=== PATIENT | female | born 1990 | race Caucasian/White ===

== ENCOUNTER 2024-03-30 19:23 | Emergency (ER) | payer SELFPAY ==
[2024-03-30 19:26] VITALS: BP 145/97; PULSE 92; RESP 20; TEMP 37.1; O2SAT 99; BMI 26.6
[2024-03-30 19:30] VITALS: BP 145/97; PULSE 95; O2SAT 100
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
[2024-03-30 20:00] VITALS: PULSE 84; O2SAT 98
[2024-03-30] MEDS: DEXAMETHASONE 4MG/ML 5ML MDV 10 MG IV (20:03)
[2024-03-30] MEDS: ACETAMINOPHEN 1,000MG/100ML VIAL 1000 MG IV (20:03)
[2024-03-30] MEDS: OXYCODONE 5MG IMMEDIATE RELEASE TABLET 5 MG PO (20:03)
[2024-03-30] MEDS: LACTATED RINGERS 1000ML 1,000 ML 999 ML IV (20:03)
[2024-03-30 20:04] LABS: Basophils # 0.1 K/mm3 (0-0.2); Basophils % 0.6 % (0.1-2.0); Eosinophils # 0.3 K/mm3 (0.0-0.4); Hematocrit 39.6 % (37.0-47.0); Lymphocytes # 2.7 K/mm3 (0.7-4.5); Lymphocytes % 25.3 % (10-50); Mean Corpuscular HGB Conc 32.8 g/dL (31.8-35.4); Mean Corpuscular Hemoglobin 33.1 pg (27.0-31.2); Mean Corpuscular Volume 100.8 fl (81-99); Mean Platelet Volume 7.4 fl (7.4-10.4); Monocytes # 0.5 K/mm3 (0.1-1.0); Monocytes % 5.1 % (1.7-9.3); Platelet Count 424 K/mm3 (142-424); Red Blood Count 3.93 M/mm3 (4.20-5.40); Red Cell Distribution Width 14.8 % (11.5-17.5); White Blood Count 10.7 K/mm3 (4.8-10.8)
[2024-03-30 20:07] LABS: Chloride 108 mmol/L (98-107); HCG Qualitative, Serum Negative (Negative)
[2024-03-30 20:08] LABS: Potassium 3.3 mmoL/L (3.5-5.1); Sodium 138 mmol/L (136-145)
[2024-03-30 20:10] LABS: Alanine Aminotransferase 100 U/L (12-78); Alkaline Phosphatase 86 U/L (38-126); Aspartate Amino Transferase 175 U/L (14-36); Bilirubin,Total 0.7 mg/dl (0.2-1.3); Blood Urea Nitrogen 11 mg/dl (7-17); Creatine Kinase 1251 U/L (30-135); Creatinine Clearance Estimated 130 mL/min (50-200); Estimated Glomerular Filt Rate 96 ml/min (>60); GFR (African American) 116 ML/MIN (>60); INR 0.95 (0.9-1.1); Prothrombin Time 10.3 seconds (10.1-12.5)
[2024-03-30 20:11] LABS: Albumin Level 4.4 g/dl (3.5-5.0); Albumin/Globulin Ratio 1.5 (1.1-1.8); Calcium 9.7 mg/dl (8.4-10.2); Globulin 2.9 g/dL (1.3-3.2); Glucose 101 mg/dl (74-100); Lipase 103 U/L (23-300); Magnesium 1.7 mg/dl (1.6-2.3); Total Protein,Serum 7.3 g/dl (6.3-8.2)
[2024-03-30 20:22] LABS: Troponin I 0.02 ng/ml (0.00-0.034)
[2024-03-30 21:45] VITALS: BP 147/96; PULSE 71; O2SAT 98
[2024-03-30 21:50] LABS: Anion Gap 8.3 mEq/L (5-15); Carbon Dioxide 25 mmol/L (22.0-30.0)
[2024-03-30] MEDS: SODIUM CHLORIDE 0.9% 10ML SYR (RAD ONLY) 10 ML IV (21:51)
[2024-03-30] MEDS: 0.9 % SODIUM CHLORIDE 50 ML VIAL IV ×2 (21:51→21:52)
[2024-03-30] MEDS: IOPAMIDOL-370 (76%);100ML BOTTLE 200 ML IV (21:51)
--- NOTE | 2024-03-30 22:10 | PC.NURSE ---
urine collected and sent to lab
[2024-03-30 22:16] LABS: Microscopic, Urine URINE MICROSCOPIC (MICROSCOPIC)
[2024-03-30 22:19] LABS: Appearance,Urine CLEAR (Clear); Bilirubin,Urine Negative (Negative); Blood, Urine 2+ (Negative); Color,Urine YELLOW (Yellow); Glucose,Urine (UA) Negative (Negative); Ketones,Urine Negative (Negative); Leukocyte Esterase,Urine Negative (Negative); Nitrate,Urine Negative (Negative); Protein,Urine Negative (Negative); Urobilinogen,Urine 0.2 EU/dl (0.2)
[2024-03-30 22:32] LABS: RBC,Urine Occasional #/hpf (0-3); Squamous Epithelial Cell,Urine Occasional #/hpf (0-5)
[2024-03-30 22:33] LABS: Lactic Acid 0.9 mmol/L (0.7-2.1)
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
[2024-03-30 23:04] VITALS: BP 157/105; PULSE 65; RESP 15; TEMP 36.7; O2SAT 97
== END 2024-03-30 23:06 | disposition home or self-care (01) ==
PROVIDERS: Physician Assistant; Emergency Provider Emergency Medicine
DX: S02.40DA Maxillary fracture, left side, initial encounter for closed fracture (principal); H05.233 Hemorrhage of bilateral orbit; T07.XXXA Unspecified multiple injuries, initial encounter; S10.83XA Contusion of other specified part of neck, initial encounter; Y04.8XXA Assault by other bodily force, initial encounter; Z65.4 Victim of crime and terrorism
CPT/HCPCS: 70450; 70486; 70496; 70498; 71275; 72125; 72128; 72131; 72192; 73060; 73070; 73080; 73090; 73130; 73551; 73562; 73590; 73610; 73620; 74174; 80053; 81001; 82550; 83605; 83690; 83735; 84484; 84703; 85025; 85610; 96361; 96374; 96375; 99285; J0131; Q9967

== ENCOUNTER 2024-06-25 01:11 | Emergency (ER) | payer SELFPAY ==
[2024-06-25 01:11] VITALS: BP 127/84; PULSE 92; RESP 22; TEMP 36.6; O2SAT 97; BMI 28.3
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
--- NOTE | 2024-06-25 01:31 | XR_ITS ---
PROCEDURE INFORMATION: Exam: XR Right Elbow Exam date and time: 06/25/2024 1:39 AM Age: 33 years old Clinical indication: Injury or trauma; Laceration; Elbow; Right; Additional info: Laceration, possible foreign body TECHNIQUE: Imaging protocol: Radiologic exam of the right elbow. Views: 1 or 2 views. COMPARISON: CR XR ELBOW RT 2V 03/30/2024 8:39 PM FINDINGS: Bones/joints: Normal. Soft tissues: Normal. IMPRESSION: No acute findings. No foreign body identified.
--- NOTE | 2024-06-25 01:34 | PC.NURSE ---
Tranexamic Acid (TXA) order placed per verbal order, to be placed on 4x4 gauze and placed on wound
--- NOTE | 2024-06-25 01:37 | PC.NURSE ---
contacted [facility] and spoke with gonzalez guzman
[2024-06-25] MEDS: TET/DIPHTH/PERT-ADULT 0.5ML SYRINGE 0.5 ML IM (01:42)
[2024-06-25] MEDS: TRANEXAMIC ACID 1,000 MG/10 ML VIAL 1000 MG TP (01:42)
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
[2024-06-25 02:50] VITALS: BP 111/64; PULSE 87; RESP 18; TEMP 36.6; O2SAT 98
== END 2024-06-25 02:51 | disposition home or self-care (01) ==
PROVIDERS: Emergency Provider Emergency Medicine
DX: S51.811A Laceration without foreign body of right forearm, initial encounter (principal); W25.XXXA Contact with sharp glass, initial encounter; Z23 Encounter for immunization
CPT/HCPCS: 12034; 73070; 90471; 90715; 96374; 99284